=== PATIENT | male | born 1965 | race Caucasian/White ===

== ENCOUNTER 2022-08-20 13:15 | Emergency (ER) | payer OTHER, SELFPAY ==
[2022-08-20] VITALS (13 sets, daily range): BP systolic 195–245; BP diastolic 107–138; PULSE 93–112; RESP 17–21; TEMP 36.8; O2SAT 95–96
--- NOTE | 2022-08-20 13:15 | RT.EKG_ITS ---
APPROVED REPORT Exam: Resting ECG Reason for Exam: high blood pressure Patient Location: E HR:105 bpm ECG Measurements Heart Rate 105 AXIS MA 181 P 55 QRSd 106 QRS -7 QT 360 T 74 QTc 478 Conclusion Sinus tachycardia...rate> 99 Probable left ventricular hypertrophy...(RaVL+SV3)xQRSd >280
--- NOTE | 2022-08-20 13:58 | W.ED.GENAD ---
Discharge Plan Disposition Patient Disposition: Home Condition: Stable Discharge Details Clinical Impression: Hypertension Primary Care Provider: Unknown,Unknown ED Provider: Wood Rodriguez Home Meds and New Rx's Prescriptions: New lisinopril 10 mg tablet 10 mg PO DAILY Qty: 30 0RF Discharge Instructions Instructions: Hypertension (ED) Additional Instructions: Please take blood pressure medicine as prescribed. Please follow-up with primary care physician. Return to the emergency department immediately for any worsening or new concerning symptoms. Medical Decision Making Patient here with asymptomatic hypertension, sent from [facility]. Patient has no concerning findings on examination other than mild anxiety. EKG was reviewed and interpreted by me: Sinus tachycardia 105 bpm, probable left ventricular hypertrophy. Labs reviewed including CBC and BMP, nondiagnostic. I will initiate treatment with lisinopril 10 mg daily and establish PCP follow-up. HPI General Mode of arrival: ambulatory. Date/Time Provider Initiated Documentation: 08/20/22 13:23. Limitations to Documentation: no limitations. Information obtained by: patient. HPI Narrative: 57-year-old male sent here by [facility] for elevated blood pressure. Patient does not have a primary care physician has not been seen by physician for physical 1 years. He went to have eye exam performed for prescription update and was noted to have elevated blood pressure. He went to [facility] who noted elevated blood pressure and sent the patient to the emergency department. Patient has no complaints. He specifically denies headache, numbness tingling, weakness, chest pain or shortness of breath. Related Data Home Medications Medication Instructions Recorded Confirmed lisinopril 10 mg tablet 10 mg PO DAILY #30 tabs 08/20/22 Previous Rx's Medication Instructions Recorded lisinopril 10 mg tablet 10 mg PO DAILY #30 tabs 08/20/22 Allergies Allergy/AdvReac Type Severity Reaction Status Date / Time No Known Allergies Allergy Unverified 08/20/22 13:20 General Stated Complaint: GenMedical ALONSO: 2 Review of Systems All systems reviewed & are unremarkable except as noted in HPI and below Constitutional Constitutional: Denies fever(s) Cardiovascular Cardiovascular: Denies chest pain PFSH All Active Problems Hypertension (Chronic) Social History Smoking/Tobacco Use Status: Never Smoking risk assessment performed?: Yes Alcohol Intake: current Alcohol Intake frequency: holidays/special occasions only Drug use: Never Substance use type: does not use Do you feel safe at home: Yes Do you feel safe in your relationship?: Yes Exam Const General: cooperative and no acute distress HENMT Mouth: moist mucous membranes Eyes Conjunctivae: normal conjunctivae Sclera: normal sclerae Neck Neck: trachea midline and supple Resp Auscultation: clear to auscultation bilaterally, no rales, no rhonchi and no wheezes Cardio Rate: regular rate and not tachycardic Rhythm: regular rhythm GI Palpation: soft, not firm, no guarding, no masses, not rigid and nontender Skin General skin exam: no rashes or lesions noted Neuro General: patient alert, patient awake, patient oriented x3 and tone normal Extrem General: no edema Psych Appearance: grossly normal Mental Status: mental status grossly normal Course Vital Signs Vital signs: Vital Signs Temperature 36.8 C 08/20/22 13:18 Pulse 112 H 08/20/22 13:18 Respiratory Rate 18 08/20/22 13:18 Pulse Oximetry 95 08/20/22 13:18 Temperature 36.8 C 08/20/22 13:18 Pulse 112 H 08/20/22 13:18 Respiratory Rate 18 08/20/22 13:18 Respiratory Effort 08/20/22 13:37 Respiratory Depth Normal 08/20/22 13:37 Respiratory Pattern Normal 08/20/22 13:37 Blood Pressure 245/138 H 08/20/22 13:23 Pulse Oximetry 95 08/20/22 13:18 Oxygen Delivery Method Room Air 08/20/22 13:18 Oxygen Flow Rate 0 08/20/22 13:18
--- NOTE | 2022-08-20 14:09 | NUR.NOTE ---
Referral given to Care Management for Nursing Note: Referral given to Care Management for needs PCP; hypertensive starting medications; 1 to 2 weeks.
[2022-08-20] MEDS: Lisinopril 10 MG TAB PO (14:11)
[2022-08-20 14:18] LABS: Abs Immature Grans 0.04 10^3/uL (0.0-0.06); Absolute Basophil Count 0.05 10^3/uL (0.0-0.2); Absolute Lymphocyte Count 1.24 10^3/uL (1.2-3.4); Absolute Neutrophil Count 6.39 10^3/uL (1.2-6.7); Basophils % 0.6; Eosinophils % 1.2; HCT 47.9 % (40.0-50.0); HGB 15.6 g/dL (13.5-17.5); Immature Grans % 0.5; Lymphocytes % 14.6; MCH 28.1 pg (27.0-33.0); MCHC 32.6 % (32.0-36.0); MCV 86 fL (80-95); MPV 11.2 fL (8.0-11.0); Monocytes % 8.2; Neutrophils % 74.9; Platelet Count 226 10^3/uL (130-400); RBC 5.55 10^6/uL (4.36-5.78); RDW 13.3 % (11.8-14.1); RDW-SD 41.6 fL; WBC 8.52 10^3/uL (4.4-10.8)
[2022-08-20 14:27] LABS: Anion Gap 7.1 mmol/L (3-11); BUN 21 mg/dL (7-18); CO2 27.9 mmol/L (21.0-32.0); Chloride 104 mmol/L (98-107); Estimated GFR 88.88 (mL/min/1.73m2); Glucose 95 mg/dL (74-106); Potassium 3.7 mmol/L (3.5-5.1); Sodium 139 mmol/L (136-145)
[2022-08-20 15:33] LABS: TSH (W/Ref FT4) 0.87 uIU/mL (0.36-3.74)
== END 2022-08-20 15:09 | disposition home or self-care (01) ==
PROVIDERS: Emergency Provider Student in an Organized Health Care Education/Training Program
DX: I10 Essential (primary) hypertension (principal); F41.9 Anxiety disorder, unspecified; R00.0 Tachycardia, unspecified
CPT/HCPCS: 80048; 93005; 99283; 84443; 85025; 93010; 99284

== ENCOUNTER 2022-11-06 08:44 | Outpatient (REF) | payer OTHER, SELFPAY ==
--- NOTE | 2022-11-05 08:45 | SKI_PTH ---
PATIENT: Ankur Kc LOC: [facility] U#:[id number] AGE/SX: 57/M ROOM: RE11/06/[address]: ALESSIO Valentine : 1965 BED: DIS: 11/06/2022 SPEC #: [id number] RECD: 11/06/22 12:32 STATUS: [place] REQ #: [id number] BLESSING: 11/05/22 08:[address]: Bibi Wolf DEPT: Surgical Specimen RECD BY: Gianna Wang ENTERED: 11/06/22 12:33 SP TYPE: ELMIRA FERRO DR: Asaf Romero DO Tissues: 1 - SKIN BIOPSY(SHAVE/PUNCH) Procedures: SKIN LEVEL 4 Comments: [id number]
== END 2022-11-06 08:45 | disposition home or self-care (01) ==
LOC: NCHCN 08:44
PROVIDERS: PCP Family Medicine; Visit Provider Physical Therapy Assistant
DX: D18.01 Hemangioma of skin and subcutaneous tissue (principal)
CPT/HCPCS: 88305

== ENCOUNTER 2023-10-30 08:35 | Outpatient (REF) | payer BC, SELFPAY | END 2023-10-30 08:36 | disposition home or self-care (01) | LOC: LBN 08:35 | PROVIDERS: PCP Family Medicine; Visit Provider Family Medicine | DX: R19.7 Diarrhea, unspecified (principal) | CPT/HCPCS: 87329; 87505; 87177 ==

== ENCOUNTER 2024-02-17 07:34 | Day surgery (SDC) | payer BC, SELFPAY ==
--- NOTE | 2024-02-16 07:21 | W.PM.DSUDISC ---
Date of service: 02/17/24 Time of Service: 10:46 Discharge Plan Disposition Patient Disposition: Home Condition: Good Discharge Details Reason For Visit: Diagnostic colonoscopy Attending Provider: Ari Medley Primary Care Provider: Asaf Romero Home Meds and New Rx's Prescriptions: Continued hydrochlorothiazide 25 mg tablet 25 mg PO DAILY Qty: 90 3RF amlodipine 10 mg tablet 10 mg PO DAILY Qty: 90 3RF losartan 50 mg tablet 50 mg PO DAILY Qty: 90 3RF Discontinued polyethylene glycol 3350 17 gram/dose powder 238 g PO ONCE Qty: 238 0RF Rx Instructions: take per colonoscopy instructions bisacodyl [Dulcolax (bisacodyl)] 5 mg tablet,delayed release (DR/EC) 5 mg PO ONCE Qty: 4 0RF Rx Instructions: take per colonoscopy instructions No Action ondansetron HCl 8 mg tablet 8 mg PO Q8H Qty: 3 0RF Rx Instructions: Take 1 tablet by mouth at the start of your GoLytely bowel prep. Take another tablet by mouth up to every 8 hours if needed for nausea or vomiting during the bowel prep. Discharge Instructions Instructions: Colon polyps Additional Instructions: radha Salas to tell you that we were not able to complete your colonoscopy today, because the bowel prep was inadequate for me to safely pass the camera. I did find 1 polyp during the course of the procedure which I removed today, but multiple areas within the colon were not adequately visualized to rule out the presence of polyps in other locations. I have asked the office to plan to reschedule you for another colonoscopy attempt. We will use a different bowel prep, and extend the period of liquids that you will consume before beginning the prep. I have also taken the liberty of providing a prescription for a medication called ondansetron to help with any nausea that you may experience during the next effort of the bowel prep. Expect a call from the office in the next few days to work on rescheduling, and to get you the prescription for the GoLytely bowel prep. If you need anything, or have any questions in the meantime, please do not hesitate to call. 1. If tolerated, consume a soft, low fiber diet for 1-2 days. [address] not drive, drink alcohol, operate machinery, make critical decisions, or do activities that require coordination or balance for 24 hours. 3. Because air was put into your colon during the procedure, expelling air from your rectum (passing gas or farting) is normal. 4. You may not have a bowel movement for 1-3 days because of the colonoscopy prep. This is normal. 5. Go directly to the emergency room if you notice any of the following: Develop chills (warm to touch), or if you have a thermometer and your temperature is above 101 Difficulty breathing or difficultly swallowing Persistent vomiting Severe abdominal pain, other than gas cramps Severe chest pain Black, tarry stools Any bleeding ? exceeding one tablespoon 6. Call your physician if the site where your intravenous was started becomes red, swollen, painful, and warm to touch. 7. Your physician has reviewed your pre-procedure medications. Please continue to take those medications as previously ordered. You will be given specific information/education regarding any changes to your medications before leaving. Activity:: Activity as Tolerated Diet:: As Tolerated Discharge Orders Discharge Orders: Discharge Order (Routine); Ordered 02/16/24 Ordered By: Ari Medley
--- NOTE | 2024-02-16 07:23 | COLE_ITS ---
Date of service: 02/17/24 Time of Service: 10:48 Colonoscopy Report Date of procedure: 02/17/24 Pre-op diagnosis general: Diarrhea Post-op diagnosis procedure note: other (Rectal polyp, incomplete colonoscopy) Procedure: Colonoscopy with polypectomy Surgeon: Ari Medley Anesthesia Type: General:No Airway Estimated blood loss (mL): 5 Pathology: other (0.75 cm pedunculated rectal polyp) Complications: None Disposition: same day Indications: Ankur is a 58 year old man who has been experiencing diarrhea Prep: Miralax/Dulcolax Procedure Start Time: 10:06 Procedure End Time: 10:32 Findings: 0.75 cm pedunculated rectal polyp, incomplete colonoscopy due to inadequate prep Procedure Description: After the induction of anesthesia, and with the patient in left lateral decubitus position, I began by performing an external anorectal exam.? Perineum and skin were normal, as was the anal verge.? There was no evidence of external hemorrhoids.? Next, I performed a digital rectal exam.? I did appreciate any abnormal findings.? Next, I advanced a colonoscope into the rectal vault.? There was a significant amount of fecal contamination. I performed retroflexion.? After copious irrigation, this appeared normal.? I turned the camera forward and began advancing into the rectum. About intermediate up into the rectal vault was a 0.75 cm pedunculated polyp. This was retrieved with cold snare polypectomy without any difficulty. Unfortunately, as I attempted to advance the camera, there was quite a bit of fecal contamination. Despite several attempts with irrigation it was nearly impossible to clear a mix of solid and liquid stool. The colonoscope was clogged multiple times requiring complete removal and flushing. Although I was able to get up around the splenic flexure, the contamination of the remainder of the colon precluded safe passage of the colonoscope. Therefore, I elected to terminate the procedure, and plan for a different prep and another attempt in the future. Robinson Bowel Prep Robinson Bowel Prep Left Colon: 0 Transverse Colon: 1 Total Score: 1
[2024-02-17 08:31] VITALS: BP 146/92; PULSE 119; RESP 22; TEMP 36.5; O2SAT 96
[2024-02-17] MEDS: Lactated Ringers 1,000 ML 80 ML IV (08:45)
--- NOTE | 2024-02-17 08:56 | ANES.PREOP_ITS ---
General Info Date of Service Date Performed: 02/17/24 Height: 6 ft 2 in Weight: 129.9 kg Body Mass Index (BMI): 36.7 Surgical Procedure: Operation Date: 02/17/24 09:50 Proposed Procedure Side Surgeon dana Medley MD Meds Allergies and Home Medications Allergies Allergy/AdvReac Type Severity Reaction Status Date / Time No Known Allergies Allergy Verified 02/17/24 08:28 Home Medication ?Medication ?Instructions ?Recorded amlodipine 10 mg tablet 10 mg PO DAILY #90 tabs 05/13/23 losartan 50 mg tablet 50 mg PO DAILY #90 tabs 08/01/23 hydrochlorothiazide 25 mg tablet 25 mg PO DAILY #90 tabs 10/22/23 Current Visit Medications: Current Medications Generic Name Dose Route Start Last Admin Trade Name Freq PRN Reason Stop Dose Admin Ringer's Solution 1,000 mls @ 80 mls/hr 02/17/24 06:00 02/17/24 08:45 IV 02/17/24 23:59 80 mls/hr INFUSION PIPO Administration IV Miscellaneous Supplies 1 each 02/17/24 06:00 Iv Access IV 02/17/24 23:59 DIRECTED PIPO Ondansetron HCl 4 mg 02/16/24 07:24 Ondansetron 4 Mg/2 Ml Vial IVP 03/17/24 07:23 Q4H PRN PRN Nausea / Vomiting Sodium Chloride 0 ml 02/17/24 06:00 Normal Saline Flush 10 Ml Syr IV 02/17/24 23:59 PRN PRN Sodium Chloride 0 ml 02/17/24 06:00 Normal Saline 10 Ml Vial IJ 02/17/24 23:59 DIRECTED PRN Sterile Water 0 ml 02/17/24 06:00 Water,Injection,Sterile 10 Ml Vial IJ 02/17/24 23:59 DIRECTED PRN PFSH Active Problems Active Problems: Problem Status Onset Code Hemangioma Acute D18.00 Sebaceous cyst Acute L72.3 Essential hypertension Acute I10 Surgical History Surgical History H/O excision of hemangioma (11/06/22) ALESSIO Valentine Tobacco Smoking/Tobacco Use Status: Never Alcohol Alcohol Intake: current Alcohol intake frequency: holidays/special occasions only Substance Use Substance use: Never Substance use type: does not use Details: alcohol: t-60 Vital Signs and Lab Results Vital Signs Most Recent Vital Signs in EMR: Most Recent Vital Signs Temp Pulse Resp BP Pulse Ox 36.5 C 119 H 22 146/92 H 96 02/17/24 08:31 02/17/24 08:31 02/17/24 08:31 02/17/24 08:31 02/17/24 08:31 Lab Results Blood Type / Crossmatch: No Data to Display Complete Blood Count: No Data to Display Complete Metabolic Panel: No Data to Display Liver Function Panel: No Data to Display Coagulation Panel: No Data to Display Cardiac Panel: No Data to Display Arterial Blood Gas: No Data to Display Venous Blood Gas: No Data to Display Pancreas Panel: No Data to Display Thyroid Panel: No Data to Display Infectious Disease: No Data to Display Blood Cultures: No Data to Display Toxicology Panel: No Data to Display Imaging and Studies Imaging and Studies Study information below may be from another EMR and interpreted by another provider. Please see original notes in EMR for more complete details. EKG Summary: EKG PATIENT NAME: Ankur Kc UNIT #: [id number] ORDERING PROVIDER: Lj Rodriguez M.D. PRIMARY CARE PROVIDER: UNKNOWN,UNKNOWN DATE/TIME OF SERVICE: 08/20/22 1328 : 1965 PERFORMING LOCATION: ER APPROVED REPORT Exam: Resting ECG Reason for Exam: high blood pressure Patient Location: E HR:105 bpm ECG Measurements Heart Rate 105 AXIS AK 181 P 55 QRSd 106 QRS -7 QT 360 T74 QTc 478 Conclusion Sinus tachycardia...rate> 99 Probable left ventricular hypertrophy...(RaVL+SV3)xQRSd >280 <Electronically signed by LJ RODRIGUEZ MD in [place]> E-Sign Date: 08/20/22 E-Sign Time: 1545 ADDENDUM APPROVED REPORT Exam: Resting ECG Reason for Exam: high blood pressure Patient Location: E HR:105 bpm ECG Measurements Heart Rate 105 AXIS AK 181 P 55 QRSd 106 QRS -7 QT 360 T74 QTc 478 Conclusion Sinus tachycardia...rate> 99 Probable left ventricular hypertrophy...(RaVL+SV3)xQRSd >280 I have reviewed and I agree with the emergency room physician's ECG interpretation. Electronically signed by: <Electronically signed by Marsha Esposito M.D. in [place]> 08/20/22 [id number] Cosigned by: Anesthesia Assessment and Plan Anesthesia History Personal History: No History of Anesthesia Complications Family History: No Family History of Anesthesia Complications Exercise Tolerance Exercise Tolerance: Metabolic Equivalents>4 Pertinent Negatives Pertinent Negatives: No Symptoms of GERD, No Major Cardiovascular Symptoms or Complaints, No Major Pulmonary Symptoms or Complaints and No History of CVA/TIA Cardiac & Pulmonary Exam Cardiac Exam: Normal S1/S2 Heart Sounds Pulmonary Exam: Clear Bilateral Breath Sounds Implantable Cardiac Device Does patient have a Pacemaker or an ICD?: No Airway Exam Known Difficult Airway: No Mallampati Class: 3 Mouth Opening: Normal (> 3cm) Thyromental Distance: Greater than 3 cm Facial Hair: Full Reddy Neck Range of Motion: Full ROM Neck Circumference: Normal Teeth Condition: Normal Dentition ASA Classification ASA Score: ASA 2 Emergency Case?: No NPO Status NPO Status: NPO Clears >2 hours, Solids >8 hours Anesthesia Plan Resuscitation Status: Full Code Anesthesia Technique: Spinal Anesthesia Airway Planned: Natural Airway Monitors Used: Standard Monitors
[2024-02-17 09:05] VITALS: BMI 36.7
--- NOTE | 2024-02-17 10:09 | BOWEL_PTH ---
PATIENT: Ankur Kc LOC: [facility] U#:[id number] AGE/SX: 58/M ROOM: RE02/17/[address]: Ari Medley MD : 1965 BED: DIS: 02/17/2024 SPEC #: [id number] RECD: 02/17/24 12:27 STATUS: [place] REQ #: [id number] BLESSING: 02/17/24 10:[address]: Ari Medley DEPT: Surgical Specimen RECD BY: Gianna Wang ENTERED: 02/17/24 12:27 SP TYPE: Bowel OTHR DR: Asaf Romero DO Tissues: 1 - BIOPSY BOWEL Procedures: GROSS AND MICRO LEVEL 4 Comments: [id number]
[2024-02-17 10:38] VITALS: BP 141/95; PULSE 98; RESP 20; TEMP 36.6; O2SAT 95
[2024-02-17 11:08] VITALS: BP 150/105; PULSE 93; RESP 20; TEMP 36.4; O2SAT 96
--- NOTE | 2024-02-17 11:40 | W.ANESPOSTOP ---
Postoperative Evaluation Date, Time and Location Date Performed: 02/17/24 Time Performed: 11:40 Patient Location: Day Surgery Unit Vital Signs Most Recent Imported Vital Signs: Most Recent Vital Signs Temp Pulse Resp BP Pulse Ox 36.4 C L 93 H 20 150/105 H 96 02/17/24 11:08 02/17/24 11:08 02/17/24 11:08 02/17/24 11:08 02/17/24 11:08 Pain Score Most Recent Pain Score: Most Recent Pain Score Pain Level 3 02/17/24 11:08 Assessment Mental Status: Awake (Alert & Oriented to Patient Baseline) Airway and Respiratory Function: Patent airway with normal (patient baseline) respiratory exam Cardiovascular Function: Hemodynamically Stable Hydration Status: Adequately Hydrated Nausea & Vomiting: No Nausea or Vomiting Pain: Pt. Denies Any Pain Peripheral Nerve Block: Patient did not receive a nerve block
== END 2024-02-17 11:26 | disposition home or self-care (01) ==
LOC: SUR 07:35
PROVIDERS: PCP Family Medicine; Visit Provider Surgery
PROC: 0DJD8ZZ Inspection of Lower Intestinal Tract, Via Natural or Artificial Opening Endoscopic (ICD-10-PCS; CPT 45378; principal; 2024-02-17 09:45)
DX: R19.7 Diarrhea, unspecified (principal); D37.5 Neoplasm of uncertain behavior of rectum
CPT/HCPCS: 45380; 88305; J2704

== ENCOUNTER 2024-03-30 10:18 | Day surgery (SDC) | payer BC, SELFPAY ==
--- NOTE | 2024-03-29 16:02 | HPE_ITS ---
Assessment and Plan Assessment and plan (1) Encounter for screening colonoscopy: Status: Acute Assessment and plan: Ankur had an opportunity to ask any new questions about the procedure, and he has a god understanding of what to expect based on his previous experience. History of Present Illness History of Present Illness Chief Complaint: screening colonoscopy Narrative: Ankur is 58 years old. He denies any family history of colon or rectal cancers. He denies any melena or hematochezia. He has had inconsistent bowel movements over the past several months. He thinks it started around May. Essentially, he describes alternating rounds of 2 to 3-day constipation followed by several days of loose bowel movements. He tried treating it with some Pepto- Bismol, but was not satisfied with the outcome. Otherwise he has not had any specific interventions. He eats quite a bit of processed and fast foods. I did attempt colonoscopy in [place] a few weeks ago, however, the prep was inadequate for complete inspection so he returns again today for another try. Since his last visit, he feels like he has been experiencing a little more constipation. He certainly has not had any more diarrhea. In fact he has been using some Ex-Lax to help with bowel movements. PFSH All Active Problems Encounter for screening colonoscopy (Acute) Tubulovillous adenoma of colon (Acute 01/2024) Hemangioma (Acute) Sebaceous cyst (Acute) Essential hypertension (Acute) Medical History Hx of diarrhea History of hemangioma Hx of primary hypertension Surgical History History of colonoscopy (~01/2024) incomplete--recommended repeat Dr Medley H/O excision of hemangioma (11/06/22) ALESSIO Valentine Social History Smoking/Tobacco Use Status: Never Smoking risk assessment performed?: Yes Alcohol Intake: current Alcohol Intake frequency: holidays/special occasions only Alcohol type: hard liquor Drug use: Never Substance use type: does not use Details: alcohol: t-60 Housing: house Current gender identity: male Do you feel safe at home: Yes Do you feel safe in your relationship?: Yes Meds Allergies and Home Medications Allergies Allergy/AdvReac Type Severity Reaction Status Date / Time No Known Allergies Allergy Verified 03/30/24 11:32 Home Medications ?Medication ?Instructions ?Recorded ?Confirmed ?Type amlodipine 10 mg tablet 10 mg PO DAILY #90 tabs 05/13/23 03/30/24 Rx losartan 50 mg tablet 50 mg PO DAILY #90 tabs 08/01/23 03/30/24 Rx hydrochlorothiazide 25 mg tablet 25 mg PO DAILY #90 tabs 10/22/23 03/30/24 Rx ondansetron HCl 8 mg tablet 8 mg PO Q8H #3 tabs 02/17/24 03/30/24 Rx Exam Const General: cooperative, healthy appearing and not in acute distress Neck Neck: normal visual inspection, no lymphadenopathy and supple Resp Effort & Inspection: normal respiratory effort Auscultation: clear to auscultation bilaterally Cardio Jugular venous pressure: no JVD Rate: regular rate Rhythm: regular rhythm Heart Sounds: S1 normal and S2 normal GI Inspection: normal to inspection Palpation: soft, no guarding, no hernias and nontender Percussion: normal to percussion Auscultation: normal bowel sounds Neuro General: patient alert, patient awake and patient oriented x3 Psych Appearance: grossly normal
--- NOTE | 2024-03-29 16:05 | W.PM.DSUDISC ---
Date of service: 03/30/24 Time of Service: 13:40 Discharge Plan Disposition Patient Disposition: Home Condition: Good Discharge Details Reason For Visit: screening colonoscopy Attending Provider: Ari Medley Primary Care Provider: Asaf Romeor Home Meds and New Rx's Prescriptions: Continued hydrochlorothiazide 25 mg tablet 25 mg PO DAILY Qty: 90 3RF ondansetron HCl 8 mg tablet 8 mg PO Q8H Qty: 3 0RF Patient Comments: patient said he never picked it up, didn't know it was prescribed Rx Instructions: Take 1 tablet by mouth at the start of your GoLytely bowel prep. Take another tablet by mouth up to every 8 hours if needed for nausea or vomiting during the bowel prep. amlodipine 10 mg tablet 10 mg PO DAILY Qty: 90 3RF losartan 50 mg tablet 50 mg PO DAILY Qty: 90 3RF Discontinued bisacodyl 5 mg tablet,delayed release (DR/EC) 5 mg PO ONCE Qty: 8 0RF Rx Instructions: Per Colonoscopy bowel prep instructions polyethylene glycol 3350 17 gram/dose powder 238 g PO ONCE Qty: 238 0RF Rx Instructions: For Colonoscopy bowel prep, as directed by office Discharge Instructions Additional Instructions: Ankur, today's prep was much better than the last, and we were able to complete your colonoscopy without much difficulty. I did find and remove another polyp similar to the last one that you had, and I found a small area of inflammation, that I biopsied as well. It is possible that this was the site of your old polyp, but it can be a little difficult to tell based on the timing of the last colonoscopy. Similar to your previous experience, these will be sent off to the pathologist for review. Once I have the information from them, I will be in touch with any other recommendations. 1. If tolerated, consume a soft, low fiber diet for 1-2 days. 2[address] Do not drive, drink alcohol, operate machinery, make critical decisions, or do activities that require coordination or balance for 24 hours. 3. Because air was put into your colon during the procedure, expelling air from your rectum (passing gas or farting) is normal. 4. You may not have a bowel movement for 1-3 days because of the colonoscopy prep. This is normal. 5. Go directly to the emergency room if you notice any of the following: Develop chills (warm to touch), or if you have a thermometer and your temperature is above 101 Difficulty breathing or difficultly swallowing Persistent vomiting Severe abdominal pain, other than gas cramps Severe chest pain Black, tarry stools Any bleeding ? exceeding one tablespoon 6. Call your physician if the site where your intravenous was started becomes red, swollen, painful, and warm to touch. 7. Your physician has reviewed your pre-procedure medications. Please continue to take those medications as previously ordered. You will be given specific information/education regarding any changes to your medications before leaving. Stand Alone Forms: Anesthesia Discharge InstShawn Reece (DSU) Activity:: Activity as Tolerated Diet:: As Tolerated Discharge Orders Discharge Orders: Discharge Order (Routine); Ordered 03/29/24 Ordered By: Ari Medley DS: Diagnosis Discharge Diagnosis (1) Encounter for screening colonoscopy: Status: Acute Asessment and Plan: Follow-up on polypectomy report
--- NOTE | 2024-03-29 16:06 | W.COLOREPORT ---
Date of service: 03/30/24 Time of Service: 13:42 Colonoscopy Report Date of procedure: 03/30/24 Pre-op diagnosis general: screening colonoscopy Post-op diagnosis procedure note: other (Colon polyps) Procedure: colonoscopy with polypectomy Surgeon: Ari Medley Anesthesia Type: General:No Airway Estimated blood loss (mL): 5 Pathology: other (0.5 cm polyp in the ascending colon measuring approximately 140 cm from the anus, inflammatory polyp around 20 cm from the anus) Complications: None Disposition: same day Indications: Ankur is a 58 year old man who needs a screening colonoscopy Prep: Miralax/Dulcolax Procedure Start Time: 12:45 Procedure End Time: 13:33 Retraction Time: 31 Findings: 0.5 cm polyp in the ascending colon measuring approximately 140 cm from the anus, inflammatory polyp around 20 cm from the anus Procedure Description: After the induction of anesthesia, and with relief in left lateral decubitus position, I began by performing an external anorectal exam.? Similar to the previous colonoscopy, this was all normal. I advanced a colonoscope into the rectum and perform retroflexion.? This was normal as well.? Using insufflation, I then advanced the colonoscope beyond the rectal folds and into the sigmoid colon before advancing towards the cecum.?The scope was noted to be in the cecum by identification of the ileocecal valve and appendiceal orifice.? I then began withdrawing the colonoscope using repeated irrigation as necessary for full evaluation of the colonic mucosa. In the ascending colon, measuring approximately 140 cm from the anus was a 0.5 cm pedunculated polyp. This was retrieved with cold snare polypectomy. There was minimal bleeding. ?Once the scope was withdrawn to the level of the rectum, great care was taken to examine portions of the rectal folds.? The top part of the rectum, measuring around 20 cm from the anus was a small area of inflammation with what appeared to be some purulent exudate on the top of it. Specimen was obtained with cold forceps. Although grossly it looked at first a bit like an impacted diverticula, there was no actual defect in the colon wall here. No other biopsy of the periphery was obtained. Both of these were done with cold forceps with minimal bleeding. Finally, the scope was withdrawn and the patient was brought to the same-day surgery recovery unit as the anesthetic wore off. ?The findings and instructions were shared with the patient prior to discharge. [place] Bowel Prep [place] Bowel Prep Right Colon: 2 Left Colon: 2 Transverse Colon: 2 Total Score: 6
[2024-03-30 11:25] VITALS: BP 146/103; PULSE 120; RESP 18; TEMP 36.9; O2SAT 96
[2024-03-30 11:41] VITALS: BP 140/84; PULSE 111; O2SAT 96
[2024-03-30] MEDS: Lactated Ringers 1,000 ML 80 ML IV (11:44)
--- NOTE | 2024-03-30 11:54 | ANES.PREOP_ITS ---
General Info Date of Service Date Performed: 02/17/24 Height: 6 ft 2 in Weight: 125.3 kg Body Mass Index (BMI): 35.4 Surgical Procedure: Operation Date: 03/30/24 12:20 Proposed Procedure Side Surgeon p Miranda Medley MD Meds Allergies and Home Medications Allergies Allergy/AdvReac Type Severity Reaction Status Date / Time No Known Allergies Allergy Verified 03/30/24 11:32 Home Medication ?Medication ?Instructions ?Recorded amlodipine 10 mg tablet 10 mg PO DAILY #90 tabs 05/13/23 losartan 50 mg tablet 50 mg PO DAILY #90 tabs 08/01/23 hydrochlorothiazide 25 mg tablet 25 mg PO DAILY #90 tabs 10/22/23 ondansetron HCl 8 mg tablet 8 mg PO Q8H #3 tabs 02/17/24 Current Visit Medications: Current Medications Generic Name Dose Route Start Last Admin Trade Name Freq PRN Reason Stop Dose Admin Ringer's Solution 1,000 mls @ 80 mls/hr 03/30/24 06:00 03/30/24 11:44 IV 04/26/24 23:59 80 mls/hr INFUSION PIPO Administration IV Miscellaneous Supplies 1 each 03/30/24 06:00 Iv Access IV 04/26/24 23:59 DIRECTED PIPO Ondansetron HCl 4 mg 03/29/24 16:07 Ondansetron 4 Mg/2 Ml Vial IVP 04/28/24 16:06 Q4H PRN PRN Nausea / Vomiting Sodium Chloride 0 ml 03/30/24 06:00 Normal Saline Flush 10 Ml Syr IV 04/26/24 23:59 PRN PRN Sodium Chloride 0 ml 03/30/24 06:00 Normal Saline 10 Ml Vial IJ 04/26/24 23:59 DIRECTED PRN Sterile Water 0 ml 03/30/24 06:00 Water,Injection,Sterile 10 Ml Vial IJ 04/26/24 23:59 DIRECTED PRN PFSH Active Problems Active Problems: Problem Status Onset Code Encounter for screening colonoscopy Acute Z12.11 Tubulovillous adenoma of colon Acute 01/2024 D12.6 Hemangioma Acute D18.00 Sebaceous cyst Acute L72.3 Essential hypertension Acute I10 Medical History Medical History Hx of diarrhea History of hemangioma Hx of primary hypertension Surgical History Surgical History History of colonoscopy (~01/2024) incomplete--recommended repeat Dr Medley H/O excision of hemangioma (11/06/22) ALESSIO Valentine Tobacco Smoking/Tobacco Use Status: Never Alcohol Alcohol Intake: current Alcohol intake frequency: holidays/special occasions only Alcohol type: hard liquor Substance Use Substance use: Never Substance use type: does not use Details: alcohol: t-60 Vital Signs and Lab Results Vital Signs Most Recent Vital Signs in EMR: Most Recent Vital Signs Temp Pulse Resp BP Pulse Ox 36.9 C 111 H 18 140/84 96 03/30/24 11:25 03/30/24 11:41 03/30/24 11:25 03/30/24 11:41 03/30/24 11:41 Lab Results Blood Type / Crossmatch: No Data to Display Complete Blood Count: No Data to Display Complete Metabolic Panel: No Data to Display Liver Function Panel: No Data to Display Coagulation Panel: No Data to Display Cardiac Panel: No Data to Display Arterial Blood Gas: No Data to Display Venous Blood Gas: No Data to Display Pancreas Panel: No Data to Display Thyroid Panel: No Data to Display Infectious Disease: No Data to Display Blood Cultures: No Data to Display Toxicology Panel: No Data to Display Imaging and Studies Imaging and Studies Study information below may be from another EMR and interpreted by another provider. Please see original notes in EMR for more complete details. EKG Summary: EKG PATIENT NAME: Ankur Kc UNIT #: [id number] ORDERING PROVIDER: Lj Rodriguez M.D. PRIMARY CARE PROVIDER: UNKNOWN,UNKNOWN DATE/TIME OF SERVICE: 08/20/22 1328 : 1965 PERFORMING LOCATION: ER APPROVED REPORT Exam: Resting ECG Reason for Exam: high blood pressure Patient Location: E HR:105 bpm ECG Measurements Heart Rate 105 AXIS CO 181 P 55 QRSd 106 QRS -7 QT 360 T74 QTc 478 Conclusion Sinus tachycardia...rate> 99 Probable left ventricular hypertrophy...(RaVL+SV3)xQRSd >280 <Electronically signed by LJ RODRIGUEZ MD in [place]> E-Sign Date: 08/20/22 E-Sign Time: 1545 ADDENDUM APPROVED REPORT Exam: Resting ECG Reason for Exam: high blood pressure Patient Location: E HR:105 bpm ECG Measurements Heart Rate 105 AXIS CO 181 P 55 QRSd 106 QRS -7 QT 360 T74 QTc 478 Conclusion Sinus tachycardia...rate> 99 Probable left ventricular hypertrophy...(RaVL+SV3)xQRSd >280 I have reviewed and I agree with the emergency room physician's ECG interpretation. Electronically signed by: <Electronically signed by Marsha Esposito M.D. in [place]> 08/20/22 [id number] Cosigned by: Anesthesia Assessment and Plan Anesthesia History Personal History: No History of Anesthesia Complications Family History: No Family History of Anesthesia Complications Exercise Tolerance Exercise Tolerance: Metabolic Equivalents>4 Pertinent Negatives Pertinent Negatives: No Symptoms of GERD, No Major Cardiovascular Symptoms or Complaints, No Major Pulmonary Symptoms or Complaints and No History of CVA/TIA Cardiac & Pulmonary Exam Cardiac Exam: Normal S1/S2 Heart Sounds Pulmonary Exam: Clear Bilateral Breath Sounds Implantable Cardiac Device Does patient have a Pacemaker or an ICD?: No Airway Exam Known Difficult Airway: No Mallampati Class: 3 Mouth Opening: Normal (> 3cm) Thyromental Distance: Greater than 3 cm Facial Hair: Full Reddy Neck Range of Motion: Full ROM Neck Circumference: Normal Teeth Condition: Normal Dentition ASA Classification ASA Score: ASA 2 Emergency Case?: No NPO Status NPO Status: NPO Clears >2 hours, Solids >8 hours Anesthesia Plan Resuscitation Status: Full Code Anesthesia Technique: Spinal Anesthesia Airway Planned: Natural Airway Monitors Used: Standard Monitors
[2024-03-30 12:36] VITALS: BMI 35.4
--- NOTE | 2024-03-30 13:11 | BOWEL_PTH ---
PATIENT: Ankur Kc LOC: [facility] U#:[id number] AGE/SX: 58/M ROOM: RE03/30/[address]: Ari Medley MD : 1965 BED: DIS: 03/30/2024 SPEC #: [id number] RECD: 03/30/24 18:13 STATUS: [place] RE #: [id number] BLESSING: 03/30/24 13:[address]: Ari Medley DEPT: Surgical Specimen RECD BY: Gianna Wang ENTERED: 03/30/24 18:14 SP TYPE: Bowel OTHR DR: Asaf Romero DO Tissues: 1 - BIOPSY BOWEL 2 - BIOPSY BOWEL Procedures: GROSS AND MICRO LEVEL 4 Comments: [id number]
[2024-03-30 13:40] VITALS: BP 120/93; PULSE 92; RESP 16; TEMP 36.4; O2SAT 95
--- NOTE | 2024-03-30 14:06 | W.ANESPOSTOP ---
Postoperative Evaluation Date, Time and Location Date Performed: 03/30/24 Time Performed: 14:06 Patient Location: Day Surgery Unit Vital Signs Most Recent Imported Vital Signs: Most Recent Vital Signs Temp Pulse Resp BP Pulse Ox 36.4 C L 92 H 16 120/93 H 95 03/30/24 13:46 03/30/24 13:46 03/30/24 13:46 03/30/24 13:46 03/30/24 13:46 Pain Score Most Recent Pain Score: Most Recent Pain Score Pain Level 0 03/30/24 13:46 Assessment Mental Status: Awake (Alert & Oriented to Patient Baseline) Airway and Respiratory Function: Patent airway with normal (patient baseline) respiratory exam Cardiovascular Function: Hemodynamically Stable Hydration Status: Adequately Hydrated Nausea & Vomiting: No Nausea or Vomiting Pain: Pt. Denies Any Pain Peripheral Nerve Block: Patient did not receive a nerve block
[2024-03-30 14:09] VITALS: BP 132/98; PULSE 80; RESP 18; TEMP 36.3; O2SAT 96
== END 2024-03-30 14:12 | disposition home or self-care (01) ==
LOC: SUR 10:19
PROVIDERS: PCP Family Medicine; Visit Provider Surgery
PROC: 0DJD8ZZ Inspection of Lower Intestinal Tract, Via Natural or Artificial Opening Endoscopic (ICD-10-PCS; CPT 45378; principal; 2024-03-30 12:15)
DX: Z12.11 Encounter for screening for malignant neoplasm of colon (principal); D12.2 Benign neoplasm of ascending colon; K63.89 Other specified diseases of intestine
CPT/HCPCS: 45385; 45380; 88305; J2704

== ENCOUNTER 2024-10-23 00:31 | Outpatient (CLI) | payer BC, SELFPAY ==
--- NOTE | 2024-10-23 08:06 | DI.RAD_ITS ---
Exam(s) XR TIB/FIB RT EXAM: XR TIB/FIB RT CLINICAL HISTORY: Evaluate for osseous lesion,pain rt calf, m79.661. TECHNIQUE: 2D digital imaging was performed. COMPARISON: No exams were available for comparison FINDINGS: Two views No evidence of fracture in the tibia and fibula. Moderate degenerative changes are noted in the late ral compartment of the knee as well as some degenerative change in the ankle joint. There is a sclerotic density projected over the lateral aspect of the metaphysis tibia. Difficult to determine if this is a sclerotic bone lesion in the tibia or fractured exostoses off of the fibular head. IMPRESSION: As above. Recommend follow-up CT scan of this area. DATA REPOSITORY: RADIATION DOSE DELIVERED:
== END 2024-10-23 00:51 ==
LOC: DI 00:31
PROVIDERS: PCP Family Medicine; Visit Provider Family Medicine
DX: M79.661 Pain in right lower leg (principal)
CPT/HCPCS: 73590

== ENCOUNTER 2024-10-28 01:59 | Outpatient (CLI) | payer BC, SELFPAY ==
[2024-10-28 08:24] LABS: Calculated LDL 158 mg/dL (<100); Cholesterol 222 mg/dL (<200); HDL Cholesterol 54 mg/dL (>or=40); Triglyceride 52 mg/dL (<150)
[2024-10-28 18:28] LABS: PSA, Screening 21.2 ng/mL (<=3.5)
== END 2024-10-28 02:00 | disposition home or self-care (01) ==
LOC: LBO 01:59
PROVIDERS: PCP Family Medicine; Referring Provider Family Medicine; Visit Provider Family Medicine
DX: I10 Essential (primary) hypertension (principal); Z80.42 Family history of malignant neoplasm of prostate
CPT/HCPCS: 36415; 80061; 84153

== ENCOUNTER 2024-11-23 00:40 | Outpatient (CLI) | payer BC, SELFPAY ==
--- NOTE | 2024-11-23 08:45 | DI.MRI_ITS ---
Exam(s) MR LOWER JOINT RT WO/W EXAM: MR LOWER JOINT RT WO/W CLINICAL HISTORY: abn CT ? osteochondroma, cyst, pain R93.[address] TECHNIQUE: Multiplanar multisequence MRI of the knee was performed 1.5 roberto unit with both pre and post contrast infused sequences. Intravenous contrast injected was IV Dotarem 20 mL. COMPARISON: CR XR TIB/FIB RT from 10/23/[address] LOWER EXTREMITY RT WO from 10/30/2024 FINDINGS: EFFUSION: There is a small knee joint effusion. There is no Crawley cyst in the popliteal fossa. Ther e is an intra-articular loose oval body just anterior to the lower ACL, this measuring 7 mm AP by 0.7 cm wide by 0.5 cm craniocaudal. MARROW:There is no evidence of fracture, bone contusion, nor osteochondral defects. There is some mi ld subarticular signal abnormality as described below which is associated with overlying chondromalac ia in the lateral condyle (see below). There are no lytic osseous lesions evident. PATELLOFEMORAL COMPARTMENT: There is some signal abnormality in the distal quadriceps tendon consiste nt with element of tendinitis. No high-grade tear of this structure.. There is a prominent enthesop hyte off the inferior aspect of the patella which measures approximately 1.9 cm length by 0.7 AP by 0 .5 cm wide. This projects into the superior aspect of the patellar ligament. There is no patellar l igament tear although there is some degenerative signal in the lower aspect of the patellar ligament where there is also an enthesophyte associated with the lower aspect of the patellar ligament. In the subcutaneous fat anterior to the patellar ligament there is an oval soft tissue mass with hete rogeneous internal signal, this mass measuring 2.6 cm craniocaudal by 2.6 cm wide by 2.7 cm wide. Th is mass exhibits non uniform internal enhancement following contrast injection. This mass is not pre patellar but is anterior to the mid aspect of the patellar ligament. It does not contact the anterio r aspect of the patellar ligament. There is significant degenerative change in the anterior compartment with prominent chondromalacia ca rtilage loss over the entire mid-lateral facet of the patella; less so over the medial facet. There are osteophytes on both sides the patella. There are no patellar retinacular tears. CRUCIATE LIGAMENTS: The anterior cruciate ligament is intact.The posterior cruciate ligament is intac t. MEDIAL COMPARTMENT/MEDIAL MENISCUS: There are no tears of the medial meniscus evident.. There is an area of moderate cartilage loss over the inner 3rd of the medial femoral condyle main robert ght-bearing surface. There is no subarticular edema nor cysts at this level. There is no signal abn ormality in the medial tibial plateau. Small marginal osteophytes noted off the inner aspect of the medial femoral condyle. MEDIAL COLLATERAL LIGAMENT: Intact LATERAL COMPARTMENT/LATERAL MENISCUS: The anterior horn of the lateral meniscus appears intact. Ther e is some signal abnormality related to the area of the root of the posterior horn of the lateral men iscus but not representing a full-thickness tear.There is significant articular cartilage loss over t he main an anterior weight-bearing surfaces over the lateral femoral condyle. In addition to margina l osteophytes there are areas of significant high-grade cartilage thinning and chondral defects at th is level.There is small foci of subarticular marrow edema anteriorly at this level. ILIOTIBIAL BAND: Intact LATERAL COLLATERAL LIGAMENT COMPLEX: The fibular collateral ligament is intact. The biceps femoris t endon is intact.Popliteus muscle and tendon are intact. IMPRESSION: 1. Multilevel findings as described individually above but no evidence of significant meniscal tears, cruciate ligament tears, nor collateral ligament tears. 2. 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 In addition, the significant full-thickness area of cartilage loss over the anterior articular surface of the lateral femoral condyle exhibits irregularity suspic ious as being the ???donor site??? for the nearby loose intra-articular body seen anterior to the inf erior aspect of the anterior cruciate ligament. 3. There are prominent enthesophytes off both the anterosuperior and anteroinferior aspects of the pa tella the insertion site of the quadriceps and patellar tendons, respectively. Smaller enthesophyte is also evident at the insertional aspect of the patellar tendon onto the anterior tibial tubercle. 4. There is a well-defined oval internally enhancing soft tissue extra-articular mass in the subcutan eous fat anterior to the mid aspect of the patellar ligament which measures 2.6 x 2.7 x 2.6 cm and wh ich does not have the appearance of a simple cystic structure given its internal enhancement. This d oes not represent prepatellar bursitis given its location and signal enhancement characteristics. Th is internally enhancing lesion requires biopsy, preferably excisional to rule out neoplasm. Other findings as above. DATA REPOSITORY:
[2024-11-23] MEDS: Normal Saline Flush 10 ML SYR IJ (13:49)
[2024-11-23] MEDS: Gadoterate meglumine 20 ML SYRINGE IVP (13:49)
== END 2024-11-23 01:00 ==
LOC: DI 00:40
PROVIDERS: PCP Family Medicine; Visit Provider Nurse Practitioner Family
DX: R93.89 Abnormal findings on diagnostic imaging of other specified body structures (principal)
CPT/HCPCS: 73723

== ENCOUNTER 2024-11-23 14:59 | Outpatient (CLI) | payer BC, SELFPAY ==
[2024-11-23 22:15] LABS: PSA, Diagnostic 18.5 ng/mL (<=3.5)
== END 2024-11-23 15:00 | disposition home or self-care (01) ==
LOC: LBO 15:00
PROVIDERS: PCP Family Medicine; Visit Provider Urology
DX: R97.20 Elevated prostate specific antigen [PSA] (principal); Z80.42 Family history of malignant neoplasm of prostate
CPT/HCPCS: 36415; 84153

== ENCOUNTER 2025-02-22 10:33 | Outpatient (REF) | payer BC, SELFPAY ==
--- NOTE | 2025-02-22 10:00 | PROST_PTH ---
PATIENT: Ankur Kc LOC: [facility] U#:[id number] AGE/SX: 59/M ROOM: RE02/22/[address]: Umberto Hough MD : 1965 BED: DIS: 02/22/2025 SPEC #: [id number] RECD: 02/22/25 13:10 STATUS: [place] RE #: [id number] BLESSING: 02/22/25 10:[address]: Umberto Hough DEPT: Surgical Specimen RECD BY: Gianna Wang ENTERED: 02/22/25 13:11 SP TYPE: PROST OTHR DR: Asaf Romero DO Tissues: 1 - PROSTATE NEEDLE BIOPSY 2 - PROSTATE NEEDLE BIOPSY 3 - PROSTATE NEEDLE BIOPSY 4 - PROSTATE NEEDLE BIOPSY 5 - PROSTATE NEEDLE BIOPSY 6 - PROSTATE NEEDLE BIOPSY 7 - PROSTATE NEEDLE BIOPSY 8 - PROSTATE NEEDLE BIOPSY 9 - PROSTATE NEEDLE BIOPSY 10 - PROSTATE NEEDLE BIOPSY 11 - PROSTATE NEEDLE BIOPSY 12 - PROSTATE NEEDLE BIOPSY Procedures: GROSS AND MICRO LEVEL 4 Comments: [id number]
== END 2025-02-22 10:34 | disposition home or self-care (01) ==
LOC: LBN 10:33
PROVIDERS: PCP Family Medicine; Visit Provider Urology
DX: C61 Malignant neoplasm of prostate (principal)
CPT/HCPCS: 88305

== ENCOUNTER 2025-04-15 16:06 | Outpatient (CLI) | payer BC, SELFPAY ==
[2025-04-15 16:01] LABS: Abs Immature Grans 0.04 10^3/uL (0.0-0.06); HCT 42.5 % (40.0-50.0); HGB 14.1 g/dL (13.5-17.5); Immature Grans % 0.6 %; MCH 28.6 pg (27.0-33.0); MCHC 33.2 % (32.0-36.0); MCV 86 fL (80-95); MPV 10.7 fL (8.0-11.0); Platelet Count 236 10^3/uL (130-400); RBC 4.93 10^6/uL (4.36-5.78); RDW 13.6 % (11.8-14.1); RDW-SD 43.4 fL; WBC 7.25 10^3/uL (4.4-10.8)
[2025-04-15 16:03] LABS: ESR 7 mm/hr (0-20)
[2025-04-15 17:11] LABS: ALT 30 U/L (16-63); AST 15 U/L (15-37); Albumin 3.9 g/dL (3.4-5.0); Alkaline Phosphatase 95 U/L (46-116); Anion Gap 6.2 mmol/L (3-11); BUN 19 mg/dL (7-18); Bilirubin, Total 1.1 mg/dL (0.2-1.0); C-Reactive Protein < 0.50 mg/dL (<or=0.5); CO2 30.8 mmol/L (21.0-32.0); Calcium 9.1 mg/dL (8.5-10.1); Chloride 102 mmol/L (98-107); Estimated GFR 78.30 (mL/min/1.73m2); Glucose 116 mg/dL (74-106); LDH 173 U/L (85-227); Potassium 3.6 mmol/L (3.5-5.1); Sodium 139 mmol/L (136-145); Total Protein 7.3 g/dL (6.4-8.2); Uric Acid 4.8 mg/dL (3.5-7.2)
== END 2025-04-15 16:07 | disposition home or self-care (01) ==
LOC: LBO 16:06
PROVIDERS: PCP Family Medicine; Visit Provider Urology
DX: R59.1 Generalized enlarged lymph nodes (principal)
CPT/HCPCS: 36415; 80053; 85652; 82232; 83615; 84550; 85025; 86140

== ENCOUNTER 2025-05-04 19:32 | Outpatient (CLI) | payer BC, SELFPAY ==
[2025-05-04 16:38] LABS: Abs Immature Grans 0.07 10^3/uL (0.0-0.06); HCT 43.3 % (40.0-50.0); HGB 14.7 g/dL (13.5-17.5); Immature Grans % 0.6 %; MCH 28.8 pg (27.0-33.0); MCHC 33.9 % (32.0-36.0); MCV 85 fL (80-95); MPV 10.4 fL (8.0-11.0); Platelet Count 270 10^3/uL (130-400); RBC 5.11 10^6/uL (4.36-5.78); RDW 13.4 % (11.8-14.1); RDW-SD 41.9 fL; WBC 10.96 10^3/uL (4.4-10.8)
[2025-05-04 17:00] LABS: ALT 26 U/L (16-63); AST 17 U/L (15-37); Albumin 4.4 g/dL (3.4-5.0); Alkaline Phosphatase 104 U/L (46-116); Anion Gap 12.0 mmol/L (3-11); BUN 29 mg/dL (7-18); Bilirubin, Total 1.2 mg/dL (0.2-1.0); CO2 26.0 mmol/L (21.0-32.0); Calcium 9.4 mg/dL (8.5-10.1); Chloride 101 mmol/L (98-107); Estimated GFR 63.68 (mL/min/1.73m2); Glucose 133 mg/dL (74-106); LDH 174 U/L (85-227); Potassium 3.8 mmol/L (3.5-5.1); Sodium 139 mmol/L (136-145); Total Protein 8.0 g/dL (6.4-8.2)
== END 2025-05-04 19:33 | disposition home or self-care (01) ==
LOC: LBO 19:32
PROVIDERS: PCP Family Medicine; Visit Provider Internal Medicine
DX: C61 Malignant neoplasm of prostate (principal)
CPT/HCPCS: 36415; 80053; 84153; 84403; 83615; 85025

== ENCOUNTER 2025-05-18 07:25 | Day surgery (SDC) | payer BC, SELFPAY ==
--- NOTE | 2025-05-17 15:03 | ROE_ITS ---
Operative Note Operative Note PRE-OP DIAGNOSIS: Mesenteric mass POST-OP DIAGNOSIS: other (Neoplastic changes of the ileal mesentery) PROCEDURE: Diagnostic laparoscopy, incisional biopsy of ileal mass SURGEON: Ari Medley SOCIAL SCIENCES INSTRUCTOR: Bibi Wolf ANESTHESIA TYPE: Local By Surgeon and General LMA/ETT Refer to Anesthesia Record ESTIMATED BLOOD LOSS: 20 PATHOLOGY: other (Mesenteric mass) Patient was transported to: PACU Patient's condition: stable Indications: Ankur is 60 years old. He is undergoing evaluation and treatment of prostate cancer. As part of the workup, he underwent a PET CT scan that demonstrated the incidental finding of a mass in the area of what appears to be the small bowel mesentery. 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 We reviewed the consent, as well as the risks and the benefits of the procedure, and Maritza was able to provide his informed consent after discussing his questions. Next, we moved back to the operating room. He was assisted onto the OR table. Care was taken to ensure that he was comfortable. General endotracheal anesthesia was initiated. Next, a Pastrana urinary catheter was inserted using aseptic technique. He was then placed in lithotomy position, again taking great care to ensure that all areas were appropriately supported and padded. I then prepped and draped the anterior abdominal wall. I started by establishing a generous field block around the umbilicus, made a small longitudinal incision just above the umbilicus. Using a 5 mm optical port, establish pneumoperitoneum. Another 5 mm port was then placed in the left mid abdomen. This was done under the direct vision of the laparoscope. I started with a general exam of the peritoneal cavity. Liver was normal and healthy appearing. I saw no evidence of any surface lesions. Nor did I see any evidence of lesions suggestive of carcinomatosis. There is some sigmoid diverticulosis. The colon is quite redundant, but with some Trendelenburg positioning, I was able to reflect this cephalad. Next, I placed another 5 mm port in the suprapubic position. With Ankur in Trendelenburg positioning with his left side down, I could clearly identify the cecum and what appeared to be a normal appendix. I then began running the small bowel in a hand overhand fashion. In the distal ileum, there were neoplastic changes of the mesentery, with some interloop adhesions. I saw no evidence of any active infection. With the exception of this mesenteric abnormality, the rest of the s mall bowel was totally normal. I saw no evidence of Meckel's diverticulum. The redundancy of the colon made it a little challenging to identify the root of the small bowel, but all of the mesentery that I could clearly see appeared nonpathologic, with the exception of the changes seen towards the distal ileum. Next, I ran the length of the colon from the cecum antegrade to the rectum. The colon is quite dilated, but I did not see any discrete transition points. There are some adhesions of the ascending colon to the anterior abdominal wall, but a majority of these were filmy adhesions, and did not appear at all pathologic. Ankur was placed in some steep Trendelenburg positioning to spill all of the bowels out of the pelvis. Again, there is some sigmoid diverticulosis, but no obvious active pathology here. The rectum appears normal. Ankur was then brought back to a more neutral position, again with the left side down a bit to reexamine the mesentery of the distal ileum. Using a LigaSure device, I was able to dissect some of the interloop adhesions. The mesentery is thickened, and there are some adhesions towards the mesentery of the ascending colon. Great care was taken to carefully dissect this free from any of the major vessels of the mesentery. Next, I carefully incised the superficial surface of the ileal mesentery. I dissected into the mesentery itself. Although grossly pathologic on the surface, I was not able to appreciate a true distinct mass. Although there does seem to be some lymphadenopathy in this area. I carefully dissected the area in question away from the surrounding small bowel and ascending colon mesentery. This dissection was all conducted with the LigaSure with no significant bleeding. The umbilical port site was then upsized to 12 mm, and once the specimen was completely divided it was placed into an Endo Catch bag. The 12 mm port and specimen were then removed, and a Bnoilla Barrett wound closure device was used to reapproximate the fascia. 5 mm ports were then removed. There was no significant bleeding. The superficial tissues were irrigated, and subcuticular stitches were used to close the skin. Bandages were applied, Ankur was extubated, transferred to the recovery unit. Date of Procedure: 05/18/25
[2025-05-18] VITALS (37 sets, daily range): BP systolic 104–151; BP diastolic 64–105; PULSE 68–102; RESP 12–35; TEMP 36.2–36.9; O2SAT 90–96; BMI 39.4
--- NOTE | 2025-05-18 06:24 | W.ANESPRE ---
General Info Date of Service Date Performed: 05/18/25 Height: 6 ft 1 in Weight: 135.624 kg Body Mass Index (BMI): 39.4 Surgical Procedure: Operation Date: 05/18/25 08:55 Proposed Procedure Side Surgeon p Diagnostic Laparoscopy w/Excisional or Incisional Mesentery Biopsy Ari Medley MD Meds Allergies and Home Medications Allergies Allergy/AdvReac Type Severity Reaction Status Date / Time No Known Allergies Allergy Verified 05/18/25 07:43 Home Medication Medication Instructions Recorded amlodipine 10 mg tablet 10 mg PO DAILY #90 tabs 05/19/24 losartan 50 mg tablet 50 mg PO DAILY #90 tabs 07/24/24 hydrochlorothiazide 25 mg tablet 25 mg PO DAILY #90 tabs 11/03/24 atorvastatin 20 mg tablet 20 mg PO QHS #90 tabs 11/17/24 tramadol 50 mg tablet 50 mg PO Q6H PRN pain #12 tabs 03/12/25 Current Visit Medications: Current Medications Generic Name Dose Route Start Last Admin Trade Name Freq PRN Reason Stop Dose Admin Acetaminophen 1,000 mg 05/18/25 06:00 Acetaminophen 500 Mg Tab PO 05/18/25 23:59 PREOP PIPO Celecoxib 200 mg 05/18/25 06:00 Celecoxib 200 Mg Cap PO 05/18/25 23:59 PREOP PIPO Gabapentin 600 mg 05/18/25 06:00 Gabapentin 300 Mg Cap PO 05/18/25 23:59 PREOP PIPO Ringer's Solution 1,000 mls @ 80 mls/hr 05/18/25 06:00 IV 05/18/25 23:59 INFUSION PIPO Cefazolin Sodium/Dextrose 2 gm in 50 mls @ 100 mls/hr 05/18/25 06:00 Ancef Duplex IVPB 05/18/25 23:59 PREOP PIPO IV Miscellaneous Supplies 1 each 05/18/25 06:00 Iv Access IV 05/18/25 23:59 DIRECTED PIPO Sodium Chloride 0 ml 05/18/25 06:00 Normal Saline Flush 10 Ml Syr IV 05/18/25 23:59 PRN PRN Sodium Chloride 0 ml 05/18/25 06:00 Normal Saline 10 Ml Vial IJ 05/18/25 23:59 DIRECTED PRN Sterile Water 0 ml 05/18/25 06:00 Water,Injection,Sterile 10 Ml Vial IJ 05/18/25 23:59 DIRECTED PRN [facility] Active Problems Active Problems: Problem Status Onset Code Mesenteric mass Acute K63.89 Lymphadenopathy Acute R59.1 Prostate cancer Chronic ~202 C61 Arthritis of right knee Acute M17.11 Mass of right lower leg Acute R22.41 Mass of lower limb Acute R22.40 Hyperlipidemia Acute E78.5 Abnormal finding on imaging Acute R93.89 Abnormal findings on imaging test Acute R93.89 PSA elevation Acute R97.20 Pain of right calf Acute M79.661 Chronic constipation Acute K59.09 Family history of prostate cancer in father Acute Z80.42 Encounter for screening colonoscopy Acute Z12.11 Tubulovillous adenoma of colon Acute 01/2024 D12.6 Hemangioma Acute D18.00 Sebaceous cyst Acute L72.3 Essential hypertension Acute I10 Medical History Medical History Hx of malignant neoplasm of prostate Pt. states he had coils placed in his prostate 2 weeks ago and was on dexamathasone for that procedure Tubular adenoma of colon (~03/2024) Hx of diarrhea History of hemangioma Hx of primary hypertension Surgical History Surgical History History of colonoscopy (~03/2024) incomplete--recommended repeat Dr Medley H/O excision of hemangioma (11/06/22) ALESSIO Valentine Tobacco Smoking/Tobacco Use Status: Never Passive smoking exposure: No Alcohol Alcohol Intake: current Alcohol intake frequency: holidays/special occasions only Alcohol type: hard liquor Substance Use Substance use: Never Substance use type: does not use Vital Signs and Lab Results Lab Results Complete Blood Count: WBC, (4.4-10.8) 10.96 10^3/uL H 05/04/25, 16:33 RBC, (4.36-5.78) 5.11 10^6/uL 05/04/25, 16:33 Hgb, (13.5-17.5) 14.7 g/dL 05/04/25, 16:33 Hct, (40.0-50.0) 43.3 % 05/04/25, 16:33 Plt Count, (130-400) 270 10^3/uL 05/04/25, 16:33 Complete Metabolic Panel: Sodium, (136-145) 139 mmol/L 05/04/25, 16:33 Potassium, (3.5-5.1) 3.8 mmol/L 05/04/25, 16:33 Chloride, (98-107) 101 mmol/L 05/04/25, 16:33 Carbon Dioxide, (21.0-32.0) 26.0 mmol/L 05/04/25, 16:33 BUN, (7-18) 29 mg/dL H 05/04/25, 16:33 Creatinine, (0.70-1.30) 1.3 mg/dL 05/04/25, 16:33 Est GFR (CKD-EPI 2020), (mL/min/1.73m2) 63.68 05/04/25, 16:33 Calcium, (8.5-10.1) 9.4 mg/dL 05/04/25, 16:33 Albumin, (3.4-5.0) 4.4 g/dL 05/04/25, 16:33 Glucose, (74-106) 133 mg/dL H 05/04/25, 16:33 Liver Function Panel: ALT, (16-63) 26 U/L 05/04/25, 16:33 AST, (15-37) 17 U/L 05/04/25, 16:33 Imaging and Studies Imaging and Studies Study information below may be from another EMR and interpreted by another provider. Please see original notes in EMR for more complete details. EKG Summary: EKG PATIENT NAME: Ankur Kc UNIT #: [id number] ORDERING PROVIDER: Lj Rodriguez M.D. PRIMARY CARE PROVIDER: UNKNOWN,UNKNOWN DATE/TIME OF SERVICE: 08/20/22 1328 : 1965 PERFORMING LOCATION: ER APPROVED REPORT Exam: Resting ECG Reason for Exam: high blood pressure Patient Location: E HR:105 bpm ECG Measurements Heart Rate 105 AXIS ND 181 P 55 QRSd 106 QRS -7 QT 360 T74 QTc 478 Conclusion Sinus tachycardia...rate> 99 Probable left ventricular hypertrophy...(RaVL+SV3)xQRSd >280 <Electronically signed by LJ RODRIGUEZ MD in [place]> E-Sign Date: 08/20/22 E-Sign Time: 1545 ADDENDUM APPROVED REPORT Exam: Resting ECG Reason for Exam: high blood pressure Patient Location: E HR:105 bpm ECG Measurements Heart Rate 105 AXIS ND 181 P 55 QRSd 106 QRS -7 QT 360 T74 QTc 478 Conclusion Sinus tachycardia...rate> 99 Probable left ventricular hypertrophy...(RaVL+SV3)xQRSd >280 I have reviewed and I agree with the emergency room physician's ECG interpretation. Electronically signed by: <Electronically signed by Marsha Esposito M.D. in [place]> 08/20/22 [id number] Cosigned by: Anesthesia Assessment and Plan Anesthesia History Personal History: No History of Anesthesia Complications Family History: No Family History of Anesthesia Complications Exercise Tolerance Exercise Tolerance: Metabolic Equivalents>4 Pertinent Negatives Pertinent Negatives: No Symptoms of GERD, No Major Cardiovascular Symptoms or Complaints, No Major Pulmonary Symptoms or Complaints and No History of CVA/TIA Cardiac & Pulmonary Exam Cardiac Exam: Normal S1/S2 Heart Sounds Pulmonary Exam: Clear Bilateral Breath Sounds Implantable Cardiac Device Does patient have a Pacemaker or an ICD?: No Airway Exam Known Difficult Airway: No Mallampati Class: 3 Mouth Opening: Normal (> 3cm) Thyromental Distance: Greater than 3 cm Facial Hair: Full Reddy Neck Range of Motion: Full ROM Neck Circumference: Normal Teeth Condition: Generalized Poor Dentition and Loose or Chipped ASA Classification ASA Score: ASA 3 Emergency Case?: No NPO Status NPO Status: NPO Clears >2 hours, Solids >8 hours Anesthesia Plan Resuscitation Status: Full Code Anesthesia Technique: General Anesthesia Airway Planned: Endotracheal Tube Monitors Used: Standard Monitors and SedLine
[2025-05-18] MEDS: Gabapentin 300 MG CAP 600 MG PO (08:04)
[2025-05-18] MEDS: Celecoxib 200 MG CAP PO (08:05)
[2025-05-18] MEDS: Acetaminophen 500 MG TAB 1000 MG PO (08:05)
[2025-05-18] MEDS: Lactated Ringers 1,000 ML 80 ML IV (08:19)
[2025-05-18] MEDS: ceFAZolin 2 GM/50 ML BAG IVPB (09:56)
--- NOTE | 2025-05-18 12:00 | SOFT_PTH ---
PATIENT: Ankur Kc LOC: [facility] U#:[id number] AGE/SX: 60/M ROOM: RE05/18/[address]: Ari Medley MD : 1965 BED: DIS: 05/18/2025 SPEC #: [id number] RECD: 05/18/25 12:54 STATUS: [place] RE #: [id number] BLESSING: 05/18/25 12:[address]: Ari Medley DEPT: Surgical Specimen RECD BY: Gianna Wang ENTERED: 05/18/25 12:57 SP TYPE: SOFT OTHR DR: Asaf Romero DO Tissues: 1 - SOFT TISSUE MISC (INC. LIPOMA) Procedures: GROSS AND MICRO LEVEL 3 Comments: [id number]
[2025-05-18] MEDS: Bupivacaine 0.5% Pres-Free W/EPI 30 ML VIAL (12:11)
--- NOTE | 2025-05-18 12:12 | W.PM.DSUDISC ---
Date of service: 05/18/25 Discharge Plan Disposition Patient Disposition: Home Condition: Good Discharge Details Reason For Visit: Diagnostic laparoscopy/mesenteric mass sampling Attending Provider: Ari Medley Primary Care Provider: Asaf Romero Home Meds and New Rx's Prescriptions: Continued atorvastatin 20 mg tablet 20 mg PO QHS Qty: 90 3RF tramadol 50 mg tablet 50 mg PO Q6H PRN (Reason: pain) Qty: 12 0RF Rx Instructions: may take along with NSAIDS/Tylenol amlodipine 10 mg tablet 10 mg PO DAILY Qty: 90 11RF losartan 50 mg tablet 50 mg PO DAILY Qty: 90 3RF hydrochlorothiazide 25 mg tablet 25 mg PO DAILY Qty: 90 3RF Discharge Instructions Additional Instructions: Ankur, was good seeing you today, and I hope you feel well after the procedure. Things went smoothly. There are certainly some changes in the mesentery of the small intestine. Although her exposure of this was a little challenging, and the margins are relatively ill-defined, I was able to sample at least a significant portion of this area to see if the pathologist is able to identify a diagnosis. As we discussed beforehand, I will send this for stat examination to see if we can help facilitate the diagnosis to soon as possible. If these results are inconclusive, we will need to have a more detailed discussion about different options moving forward. With regards to the incisions, expect to get a little bruising over the next few days, that is extremely common and nothing to worry about. Ice packs can certainly help with any discomfort in the area, as well as with pain and bruising. I generally recommend something like [id number] ibuprofen and Tylenol for the first 2 to 3 days, then using them as needed. You already have an appointment set up with me on May 31 at 9 AM. Certainly, if you need anything before that, do not hesitate to call. Similarly, as soon as I get the pathology results I will call you. Stand Alone Forms: Anesthesia Discharge Inst[facility] Shawn Lee (DSU) Referrals: Ari Medley MD [ [facility] STAFF PHYSICIAN, Surgery] - 05/31/25 9:00 am Activity:: No heavy lifting Remove Dressings/Wound Care:: 24 hours Shower/Bathe:: 24 hours Diet:: As Tolerated Discharge Orders Discharge Orders: Discharge Order (Routine); Ordered 05/18/25 Ordered By: Ari Medley DS: Diagnosis Discharge Diagnosis (1) Mesenteric mass: Status: Acute
--- NOTE | 2025-05-18 13:21 | W.ANESPOSTOP ---
Postoperative Evaluation Date, Time and Location Date Performed: 05/18/25 Time Performed: 13:21 Patient Location: PACU Vital Signs Most Recent Imported Vital Signs: Most Recent Vital Signs Temp Pulse Resp BP Pulse Ox 36.6 C 72 15 104/74 95 05/18/25 13:04 05/18/25 13:04 05/18/25 13:04 05/18/25 13:04 05/18/25 13:04 Pain Score Most Recent Pain Score: Most Recent Pain Score Pain Level 0 05/18/25 13:04 Assessment Mental Status: Awake (Alert & Oriented to Patient Baseline) Airway and Respiratory Function: Patent airway with normal (patient baseline) respiratory exam Cardiovascular Function: Hemodynamically Stable Hydration Status: Adequately Hydrated Nausea & Vomiting: No Nausea or Vomiting Pain: Pt. Denies Any Pain Peripheral Nerve Block: Patient did not receive a nerve block
[2025-05-18] MEDS: fentaNYL 100 MCG/2 ML VIAL IVP (13:38)
== END 2025-05-18 15:15 | disposition home or self-care (01) ==
PROVIDERS: PCP Family Medicine; Visit Provider Surgery
PROC: (CPT 49320; principal; 2025-05-18 08:45)
DX: R19.09 Other intra-abdominal and pelvic swelling, mass and lump (principal); C61 Malignant neoplasm of prostate; R59.9 Enlarged lymph nodes, unspecified
CPT/HCPCS: 49321; 88305; 88304; J0690; J1100; J1885; J2003; J2250; J2405; J2704; J3010; J3475